=== PATIENT | male | born 1945 | race Two or more races ===

== ENCOUNTER 2024-06-14 14:25 | Outpatient (CLI) | payer OTHER ==
[~2024-06-14 14:25] MED LIST: COZAAR25 MG; LEVOTHYROXINE SO1 GM
[2024-06-14] MEDS ORDERED: MEMANTINE H2 MG/1 ML PO (15:50)
[2024-06-14] MEDS ORDERED: ATORVASTATIN CA10 MG PO (15:51)
== END 2024-06-14 14:36 | disposition home or self-care (01) ==
LOC: RAD 14:25
PROVIDERS: ATTEND Internal Medicine Gastroenterology
DX: M87.245 Osteonecrosis due to previous trauma, left finger(s) (principal)

== ENCOUNTER 2024-06-14 15:21 | Emergency (ER) | payer OTHER ==
[~2024-06-14] VITALS: Ht 175.3 cm; Wt 72.6 kg
[2024-06-14] MEDS ORDERED: MEMANTINE H2 MG/1 ML PO (15:50)
[2024-06-14] MEDS ORDERED: ATORVASTATIN CA10 MG PO (15:51)
== END 2024-06-14 16:22 | disposition home or self-care (01) ==
LOC: ER 15:22
DX: S62.609A Fracture of unspecified phalanx of unspecified finger, initial encounter for closed fracture (principal); X83.8XXA Intentional self-harm by other specified means, initial encounter; Y93.89 Activity, other specified; Y92.89 Other specified places as the place of occurrence of the external cause; Y99.8 Other external cause status